=== PATIENT | female | born 1985 | race Caucasian/White ===

== ENCOUNTER 2021-11-18 00:15 | Day surgery (SDC) | payer OTHER, SELFPAY ==
[2021-11-12 11:59] VITALS: BMI 56.9
--- NOTE | 2021-11-12 12:09 | PC.NURSE ---
Report to the Outpatient Waiting Room, entrance under the green pavilion located off [facility], at time 1100 on date 11/18/21. OR Time: 1300. Time changes happen often and if your time is changed the preop area will call you the afternoon before. - You and your visitor will be asked to self-screen and do not enter if you have any COVID symptoms. - Only one visitor and NO children visitors are allowed at this time. - The patient visitor is requested to leave or wait in car when not with patient due to restrictions. - A mask is required within the hospital. Patients may have clear liquids (water, carbonated beverages, clear teas, apple juice) until 3 hours prior to surgery with a maximum of 20 ounces. - No food from midnight until time of surgery Take the following medications with a SIP of water the morning of surgery: DULOXETINE Medications to discontinue per physician: NAPROXEN Date to take last dose: PER DR. DELGADO Please no make-up, nail chinese, hairspray, perfume, deodorant, or body powder the day of surgery. No jewelry (including any body piercings) or valuables the day of surgery, leave them at home. Please take a shower or bath the night before, or the morning of, surgery with an antibacterial soap. Wear comfortable, loose fitting clothing. - Jewelry must be removed prior to entering the operating room. Rings and piercings that are not removed may be cut off. - The hospital will not accept responsibility for valuables. - Please leave all valuables, including medications, at home the day of surgery. If you are going home after surgery, a licensed new car driver must drive you home. - NO public transportation without another adult. - We recommend that an adult stay with you for 24 hours following discharge. - We also recommend that you do not drive, make important decision, drink alcoholic beverages, or take any drugs that were not prescribed by your health care provider for at least 24 hours after your discharge time. Follow any additional instructions given to you from your surgeon. If you or anyone in your household have experienced Covid symptoms in the past week, please notify your surgeon or the nurse liaison at the phone number below for possible testing. Telephone instructions given to PT - JUDITH DANIEL and asked if any additional questions and then verbalized understanding. Patient advised to call surgeon office or pre surgery nurse liaison [phone] if any additional questions.
[2021-11-18] VITALS (11 sets, daily range): BP systolic 89–142; BP diastolic 56–89; PULSE 50–74; RESP 12–22; TEMP 36.1–36.3; O2SAT 98–100
--- NOTE | 2021-11-18 11:43 | P.PNAN_ITS ---
Anes - Initial Pre Proc Eval Procedure: Operation Date: 11/18/21 13:00 Proposed Procedures p Diagnostic Laparoscopy, Bilateral Salpingectomy - Fara Torres DO Date/Time: 11/18/21 11:43 Surgeon: Fara Torres DO Pre Op Diagnosis: Desire Sterility Patient Data Age: 36 Gender: F Height: 1.73 m Weight: 169.7 kg Allergies Allergy/AdvReac Type Severity Reaction Status Date / Time hydromorphone [From Dilaudid] AdvReac Other Verified 11/12/21 11:58 paroxetine [From Paxil] AdvReac Nightmare Verified 11/12/21 11:58 Home Medications Medication Instructions Recorded Confirmed Type duloxetine 30 mg capsule,delayed 30 mg PO DAILY 11/12/21 11/12/21 History release naproxen 500 mg tablet 500 mg PO BID 11/12/21 11/12/21 History omeprazole 20 mg capsule,delayed 20 mg PO DAILY 11/12/21 11/12/21 History release Patient hx anesthesia problems: none Family hx anesthesia problems: none Results Review: All pre-operative results and documents have been reviewed as part of the pre- operative evaluation. [facility] Past Medical History Medical History (Updated 11/18/21 @ 11:45 by Khalif Love MD) Anxiety Chronic GERD Morbid obesity with BMI of 50.0-59.9, adult Seizure Social History Social History Smoking packs per day: 0.5 Smoking cigarettes per day: 10.0 Years smoked: 10 Smoking pack-years: 5.00 Smoking status: Former smoker Tobacco type: cigarettes Smoking end date: 02/22/09 Alcohol intake: current Alcohol use details: RARE Substance use: never Substance use type: does not use Living arrangements: with family Spiritual care concerns: No Anes - Eval Final PreProcedure Day of Procedure 11/18/21 11:43 Patient weight: obese Heart: regular rate and rhythm Lungs: clear to auscultation and normal air movement Airway: Mallampati scale class II Neurological: alert and oriented Last oral intake: >/= 8 hours ASA classification: III Emergent: no Anesthetic plan: proceed Anesthesia type and monitoring: general ETT Results Review: All pre-operative results and documents have been reviewed as part of the pre- operative evaluation. Informed Consent: The patient's anesthetic plan and its attendant risks and benefits were discussed with the patient/family/POA. Questions were solicited and answers provided to the satisfaction of the patient/family/POA.
[2021-11-18] MEDS: ACETAMINOPHEN 500 MG TABLET 1000 MG PO (11:45)
[2021-11-18] MEDS: GABAPENTIN 300 MG CAPSULE PO (11:45)
[2021-11-18] MEDS: LACTATED RINGERS 1,000 ML 30 ML IV CONT ×2 (11:45→15:27)
--- NOTE | 2021-11-18 11:55 | P.HP_ITS ---
H&P: HPI History of Present Illness Date/Time: 11/18/21 11:55 Chief Complaint: I'm here for my surgery Narrative: Patient here for diagnostic lap, bilateral salpingectomy desiring permanent sterilization Review of Systems Review of Systems: All systems reviewed & are unremarkable except as noted in HPI and below [facility] Past Medical History Medical History (Updated 11/18/21 @ 11:57 by Fara Torres DO) Anxiety Chronic GERD Morbid obesity with BMI of 50.0-59.9, adult Seizure Social History Social History Smoking packs per day: 0.5 Smoking cigarettes per day: 10.0 Years smoked: 10 Smoking pack-years: 5.00 Smoking status: Former smoker Tobacco type: cigarettes Smoking end date: 02/22/09 Alcohol intake: current Alcohol use details: RARE Substance use: never Substance use type: does not use Living arrangements: with family Spiritual care concerns: No Meds Home Medications and Allergies Home Medications Medication Instructions Recorded Confirmed Type duloxetine 30 mg capsule,delayed 30 mg PO DAILY 11/12/21 11/12/21 History release naproxen 500 mg tablet 500 mg PO BID 11/12/21 11/12/21 History omeprazole 20 mg capsule,delayed 20 mg PO DAILY 11/12/21 11/12/21 History release Allergies Allergy/AdvReac Type Severity Reaction Status Date / Time hydromorphone [From Dilaudid] AdvReac Other Verified 11/12/21 11:58 paroxetine [From Paxil] AdvReac Nightmare Verified 11/12/21 11:58 Exam Const: General: comfortable and no acute distress Neck: Neck: supple Resp: Effort & Inspection: normal respiratory effort Auscultation: clear to auscultation bilaterally Cardio: Rate: regular rate Rhythm: regular rhythm GI: GI Palp: Yes Soft to palpation Auscultation: normal bowel sounds Skin: Wounds: no wounds Neuro: General: gait normal Speech: normal speech Motor exam (neuro): 5/5 motor strength present throughout Sensory Exam: normal sensation Psych: Mental Status: mental status grossly normal Affect: normal affect Assessment and Plan Assessment and plan (1) Sterilization: Code(s): Z30.2 - Encounter for sterilization Status: Acute Plan Diagnostic laparoscopy, bilateral salpingectomy
--- NOTE | 2021-11-18 11:55 | WPDHPUPDATE1 ---
History and Physical Update Update Date/Time: 11/18/21 11:55 History and Physical has been reviewed, including an updated exam of the patient. There are NO changes in the patient's condition. Risks, benefits, and alternatives have been discussed and questions answered. Patient agrees to proceed with procedure.
[2021-11-18] MEDS: BUPIVACAINE/EPINEPHRINE 0.25% 50 ML VIAL 30 ML INFILTRATE (13:42)
--- NOTE | 2021-11-18 13:46 | SUR.OPER ---
Delay to surgery due to incorrect birthday listed on [facility] Consent form.
--- NOTE | 2021-11-18 14:13 | P.OP_ITS ---
Procedure Note - Detailed Date of Procedure 11/18/21 Pre-op Diagnosis Desire Sterility Post-op Diagnosis Same Procedure Performed Diagnostic laparoscopy, bilateral salpingectomy, drainage of left ovarian cyst Surgeon Fara Torres, DO Anesthesia General Indications Desires permanent sterilization Findings Normal appearing but obese abdomen. Within the abdomen the liver and bowel were grossly normal. There were several small cigarette burn style endometriotic implants along the anterior left abdominal wall just above the pelvic brim. There was an endometriotic implant along the right broad ligament just distal to the round ligament. The left ovary contained a large simple cyst. Pelvic anatomy was otherwise normal. Description of Procedure Patient was taken to the operating room where she was placed under anesthesia. She was prepped and draped in the normal sterile fashion in a dorsal lithotomy position. No preoperative antibiotics were indicated. A time-out was performed. The skin below the umbilicus was grasped with 2 penetrating towel clamps and the area was injected with local. A Veress needle was introduced and the saline water drop test was performed. The water drop test was positive, however immediately upon insufflation the pressure was noted to be too high. Due to the patient's morbid obesity, I elected for direct entry approach. A long 5 mm trocar was attached to the camera and we achieved direct entry. CO2 insufflation was started on the patient's abdomen was brought to a filling pressure of 15 mmHg. Patient was placed in steep Trendelenburg position, survey of the abdomen and pelvis revealed the above-mentioned findings. Additional 5 mm trocars were placed in the right and left lower quadrants under direct visualization. The left tube was elevated and was cauterized and transected off. The left ovary contained a large at least 6 cm simple cyst. This was drained and the fluid was suctioned out of the abdomen. The excess this tissue was transected off and was removed from the abdomen. The right tube was then elevated and was cauterized and transected off. All specimens were removed from the abdomen. The endometriotic implants as mentioned above were all cauterized and were noted to be superficial. All fluid was suctioned out of the abdomen and the pedicles were reinspected and found to be hemostatic. Instruments and trocars were allan lizbeth. The patient was taken out of steep Trendelenburg was position and the CO2 was allowed to escape from the abdomen. The abdominal incisions were closed with subcuticular 4-0 Monocryl and covered with Steri-Strips. Patient was taken to the recovery room in stable condition. All instrument sponge counts were correct at the conclusion of the procedure. Estimated Blood Loss 10 IV Fluids 800 Urine Output 250 Drains No Packing No Pathology Yes Complications No immediate complications Condition Stable Disposition PACU
[2021-11-18] MEDS: ONDANSETRON INJ 4 MG/2 ML VIAL IV PUSH (14:42)
[2021-11-18] MEDS: fentaNYL CITRATE INJ (*CRX) 100 MCG/2 ML VIAL 25 MCG IV PUSH ×8 (14:47→15:18)
== END 2021-11-18 16:42 | disposition home or self-care (01) ==
PROVIDERS: Visit Provider Obstetrics & Gynecology Gynecologic Oncology
PROC: (CPT 49320; principal; 2021-11-18 13:00)
DX: Z30.2 Encounter for sterilization (principal); N80.3 Endometriosis of pelvic peritoneum; N83.202 Unspecified ovarian cyst, left side; D25.9 Leiomyoma of uterus, unspecified; K21.9 Gastro-esophageal reflux disease without esophagitis; F41.9 Anxiety disorder, unspecified; E66.01 Morbid (severe) obesity due to excess calories; Z68.43 Body mass index [BMI] 50.0-59.9, adult; Z87.891 Personal history of nicotine dependence
CPT/HCPCS: 58661; 58662; 88302; 88305; A9270; J0330; J1100; J2250; J2405; J2704; J3010; J7120